=== PATIENT | male | born 2000 | race African-American/Black ===

== ENCOUNTER 2019-05-28 19:52 | Emergency (ER) | payer OTHER ==
[~2019-05-28] VITALS: Ht 185.4 cm; Wt 77.1 kg
[2019-05-28 19:57] VITALS: BP 126/71
--- NOTE | 2019-05-28 20:01 | NUR ---
[place] [employer] AT PT BEDSIDE
--- NOTE | 2019-05-28 20:08 | NUR ---
X-Ray at bedside.
--- NOTE | 2019-05-28 20:15 | NUR ---
Dr. Álvarez examining patient.
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
--- NOTE | 2019-05-28 20:30 | NUR ---
EKG PERFORMED AT BEDSIDE. PT UNCOOPERATIVE
--- NOTE | 2019-05-28 20:32 | NUR ---
PT MADE THREATENING STATEMENTS, INCLUDING "IM GONNA MAKE SURE YOUR HEAD IS ON THE FLOOR BEFORE THE END OF THE NIGHT"
[2019-05-28 20:46] LABS: BASOPHILS % (AUTO) 0.1 % (0.0-2.0); HEMATOCRIT 43.6 % (36-52); HEMOGLOBIN 14.8 g/dL (12.0-18.0); LYMPHOCYTES # (AUTO) 0.9 K/uL (2.0-11.5); MEAN CORPUSCULAR HEMOGLOBIN 31 pg (27-31); MEAN CORPUSCULAR HGB CONC 34 g/dL (33-37); MEAN CORPUSCULAR VOLUME 89.9 fL (80-94); MONOCYTES # (AUTO) 1.1 K/uL (0.8-1.0); MONOCYTES % (AUTO) 7.5 % (1.7-9.3); NEUTROPHILS # (AUTO) 12.7 K/uL (1.8-7.7); NEUTROPHILS % (AUTO) 86.4 % (42.2-75.2); PLATELET COUNT (AUTO) 271 K/uL (140-450); RED BLOOD CELL COUNT(AUTO) 4.85 MIL/uL (4.20-6.10); RED CELL DISTRIBUTION WIDTH 13.4 % (11.6-13.7); WHITE BLOOD COUNT (AUTO) 14.7 K/uL (4.8-10.8)
--- NOTE | 2019-05-28 20:46 | NUR ---
PT TAKEN TO CT
[2019-05-28 20:55] LABS: BARBITURATE, URINE NEG. ng/ml (NEG <=200); BENZODIAZEPINE, URINE NEG. ng/mL (NEG <=200); CANNABINOID, URINE POS. ng/mL (NEG <=50); COCAINE, URINE NEG. ng/mL (NEG <=300); OPIATE, URINE NEG. ng/mL (NEG <=2000); PHENCYCLIDINE SCREEN,URINE NEG. ng/mL (NEG <=25)
--- NOTE | 2019-05-28 21:02 | NUR ---
PT RETURN FROM CT
[2019-05-28 21:04] LABS: ANION GAP 16.3 (8-16); CARBON DIOXIDE 25.2 mmol/L (21-32); CHLORIDE 107 mmol/L (98-107); CREATININE 1.2 mg/dL (0.7-1.3); GFR ARICAN-AMERICAN 98 mL/min (>90); GLUCOSE 89 mg/dL (74-106); POTASSIUM 3.5 mmol/L (3.5-5.1); SODIUM SERUM 145 mmol/L (136-145); UREA NITROGEN, BLOOD 11 mg/dL (7-18)
--- NOTE | 2019-05-28 21:08 | NUR ---
TELEPSYCH INITIATED PER DR. Alejandrina FLOYD
[2019-05-28 21:10] LABS: ALBUMIN 4.7 g/dL (3.4-5.0); ASPARTATE AMINOTRANSFERASE 71 U/L (15-37); TOTAL BILIRUBIN 0.8 mg/dL (0.0-1.0)
--- NOTE | 2019-05-28 21:10 | NUR ---
PT DENIES HAVING FEELINGS OF HARMING HIMSELF OR OTHERS. WHEN ASKED ABOUT HARMING HIMSELF PT STATED "NEVER THAT.I WOULDN'T DO THAT." DENIES AUDITORY OR VISUAL HALLUNCINATIONS. PER PT "I FEEL SAFE OCCASSIONALLY." PT WOULD NOT ELABORATE FURTHER. PT CONSTANTLY LOOKING AROUND THE ROOM AND DOES NOT MAKE EYE CONTACT.
--- NOTE | 2019-05-28 21:10 | NUR ---
RECEIVED REPORT FROM HARITHA BRAXTON. ASSUMED CARE AT THIS TIME.
[2019-05-28 21:12] LABS: ACETAMINOPHEN < 0.5 ug/ml (10-30); SALICYLATE < 2.8 mg/dL (2.8-20.0)
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
--- NOTE | 2019-05-28 22:33 | NUR ---
PT SEATED UP IN BED. PT MOTHER AT BEDSIDE. VSS. EMT AT BEDSIDE,1:1 MONITORING. BED IN LOWEST POSITION.
--- NOTE | 2019-05-28 23:03 | NUR ---
PT SEEN STANDING. PT VERBALLY AGGRESSIVE, PT STATED "GET ME OUT OF HERE. I'LL SLAP THE FUCK OUT OF YOU PEOPLE." ABLE TO REDIRECT PT.
[2019-05-28 23:19] VITALS: BP 104/76
--- NOTE | 2019-05-28 23:22 | NUR ---
RETURN CALL FROM TELEPSYCH, DR. CARRERA, WHO SPOKE WITH HARITHA LOMAX
--- NOTE | 2019-05-28 23:22 | NUR ---
SPOKE WITH DR. CARRERA TO GIVE BACKGROUND INFORMATION ON PT.
--- NOTE | 2019-05-28 23:38 | NUR ---
TELEPSYCH, DR. CARRERA, SPEAKING WITH PT VIA REMOTE COMMUNICATION
--- NOTE | 2019-05-28 23:50 | NUR ---
SPOKE WITH DR. CARRERA WHO RECOMMENDED [address] FLOYD INFORMED ABOUT RECOMMEDATION.
--- NOTE | 2019-05-28 23:51 | NUR ---
TELEPSYCH, DR. CARRERA, SPOKE WITH HARITHA LOMAX
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
--- NOTE | 2019-05-28 23:55 | NUR ---
PT LEFT FACILITY. CRISTINO MEREDITH NOTIFIED
--- NOTE | 2019-05-29 00:05 | NUR ---
ORIGINAL 5150 GIVEN TO CRISTINO. WAS INFORMED BY PD THAT PT WOULD BE TAKEN TO [facility]. PT NEVER RETURNED TO ER. PATIENT ELOPED FROM FACILITY. DISCHARGE INSTRUCTIONS NOT GIVEN TO PATIENT. DR. FLOYD NOTIFIED.
== END 2019-05-29 00:05 | disposition left against medical advice (07) ==
LOC: MED 19:52
DX: S60.221A Contusion of right hand, initial encounter (principal); S00.83XA Contusion of other part of head, initial encounter; Y04.0XXA Assault by unarmed brawl or fight, initial encounter; Y93.02 Activity, running; Y92.89 Other specified places as the place of occurrence of the external cause; Y99.8 Other external cause status
CPT/HCPCS: 36415; 70450; 70486; 72125; 73130; 80053; 80305; 85025; 93005; 99285; G0480; G0482; 99284